=== PATIENT | male | born 1990 | race Caucasian/White ===

== ENCOUNTER 2024-05-23 12:02 | Emergency (ER) | payer OTHER, BC ==
[2024-05-23 12:15] VITALS: TEMP 98.3; BMI 33.7
[2024-05-23 14:10] VITALS: BP 129/93; PULSE 97; RESP 20
== END 2024-05-23 14:20 | disposition home or self-care (01) ==
LOC: JERFT 12:02
DX: S10.93XA Contusion of unspecified part of neck, initial encounter (principal); V14.4XXA Pedal cycle driver injured in collision with heavy transport vehicle or bus in traffic accident, initial encounter; Y92.410 Unspecified street and highway as the place of occurrence of the external cause
CPT/HCPCS: 71046-TC-FY; 71101-TC-LT-FY; 72040-TC; 99284-25